=== PATIENT | female | born 1940 | race Caucasian/White ===

== ENCOUNTER 2024-05-07 09:30 | Outpatient (CLI) | payer MEDICARE, OTHER | END 2024-05-07 09:31 | disposition home or self-care (01) | LOC: PET 09:30 | PROVIDERS: ATTEND Internal Medicine Hematology & Oncology | DX: C83.31 Diffuse large B-cell lymphoma, lymph nodes of head, face, and neck (principal) | CPT/HCPCS: 78815; A9552 ==

== ENCOUNTER 2024-07-27 11:00 | Outpatient (CLI) | payer MEDICARE, OTHER | END 2024-07-27 11:01 | disposition home or self-care (01) | LOC: PET 11:00 | PROVIDERS: ATTEND Internal Medicine Hematology & Oncology | DX: C83.31 Diffuse large B-cell lymphoma, lymph nodes of head, face, and neck (principal); J98.4 Other disorders of lung | CPT/HCPCS: 78815; A9552 ==

== ENCOUNTER 2025-06-09 15:36 | Outpatient (CLI) | payer MEDICARE, OTHER | END 2025-06-09 15:37 | disposition home or self-care (01) | LOC: BICRAD 15:36 | PROVIDERS: ATTEND Internal Medicine Hematology & Oncology | DX: C83.31 Diffuse large B-cell lymphoma, lymph nodes of head, face, and neck (principal) | CPT/HCPCS: 71046 ==

== ENCOUNTER → 2025-08-19 | Outpatient (CLI) | payer MEDICARE, OTHER | LOC: PET 09:30 | PROVIDERS: ATTEND Internal Medicine Hematology & Oncology | DX: C83.31 Diffuse large B-cell lymphoma, lymph nodes of head, face, and neck (principal); J18.1 Lobar pneumonia, unspecified organism | CPT/HCPCS: 78815; 80053; A9552 ==